=== PATIENT | male | born 1975 | race Caucasian/White ===

== ENCOUNTER 2021-10-23 12:51 | Emergency (ER) | payer OTHER ==
[2021-10-23 14:20] VITALS: PULSE 96
[2021-10-23 15:12] LABS: CORONAVIRUS COVID-19 NAA NEGATIVE (NEGATIVE)
[2021-10-23] MEDS ORDERED: Albuterol 0.083% 2.5 MG/3 ML Neb Soln NEB ONE (15:52)
[2021-10-23] MEDS ORDERED: Albuterol 6.7 GM Inhaler INH ONE (18:23)
[2021-10-23 19:28] VITALS: BP 163/88
== END 2021-10-23 18:30 | disposition home or self-care (01) ==
LOC: JD.ED 12:51
DX: J06.9 Acute upper respiratory infection, unspecified (principal); F17.210 Nicotine dependence, cigarettes, uncomplicated; Z79.899 Other long term (current) drug therapy; Z20.822 Contact with and (suspected) exposure to COVID-19
CPT/HCPCS: 0240U; 36415; 71046; 80053; 83735; 85025; 86140; 94640; 99285; A9270